=== PATIENT | male | born 2000 | race Caucasian/White ===

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

== ENCOUNTER 2019-10-23 21:20 | Emergency (ER) | payer SELFPAY ==
[2019-10-23] MEDS ORDERED: Acetaminophen 500 MG TAB ONE (21:32)
[2019-10-24 11:37] LABS: SARS-CoV-2 MS2 Positive; SARS-CoV-2 N Gene Negative; SARS-CoV-2 S Gene Negative; SARS-CoV-2 orf1ab Negative
== END 2019-10-24 02:05 | disposition home or self-care (01) ==
LOC: ERS 21:20
DX: B34.9 Viral infection, unspecified (principal); Z20.828 Contact with and (suspected) exposure to other viral communicable diseases
CPT/HCPCS: 87635; 87804; 99283; U0003